=== PATIENT | female | born 1985 | race Caucasian/White ===

== ENCOUNTER 2020-08-12 12:28 | Emergency (ER) | payer OTHER ==
[~2020-08-12] VITALS: Ht 160 cm; Wt 79.4 kg
[2020-08-12] MEDS ORDERED: AUGMENTIN 875-1 EACH PO (13:29)
[2020-08-12 13:40] VITALS: BP 156/80
== END 2020-08-12 13:41 | disposition home or self-care (01) ==
LOC: M.ERS 12:28
DX: J32.9 Chronic sinusitis, unspecified (principal)